=== PATIENT | female | born 1960 | race Caucasian/White ===

== ENCOUNTER 2019-11-27 05:01 | Day surgery (SDC) | payer OTHER ==
[2019-11-25 16:35] VITALS: BMI 31.8
[2019-11-27] MEDS ORDERED: SUCCINYLCHOLINE CHLORIDE 200 MG/10 ML SYRINGE ONE (08:30)
[2019-11-27] MEDS ORDERED: ROCURONIUM BROMIDE 50 MG/5 ML SYRINGE ONE (08:30)
[2019-11-27] MEDS ORDERED: fentaNYL CITRATE 250 MCG/5 ML VIAL ONE (08:30)
[2019-11-27] MEDS ORDERED: PROPOFOL 20 ML ONE (08:30)
[2019-11-27] MEDS ORDERED: MIDAZOLAM HCL 2 MG/2 ML SINGLE DOSE VIAL ONE (08:31)
[2019-11-27] MEDS ORDERED: LIDOCAINE HCL 1%, 10 MG/ML (20ML VIAL) ONE (09:12)
--- NOTE | 2019-11-27 09:13 | HP ---
History & Physical Update - History History: No Change - Physical Physical: No Change - Assessment Assessment: No Change - Plan Plan: No Change (No change in HP)
[2019-11-27] MEDS ORDERED: ceFAZolin 2 GRAM PREMIX BAG IVPB ONE (09:15)
[2019-11-27] MEDS ORDERED: NEOSTIGMINE METHYLSULFATE 0.5 MG/ML - 10 ML MDV ONE ×2 (10:15)
[2019-11-27] MEDS ORDERED: oxyCODONE HCL 5 MG TABLET PO PRN ×3 (10:27→10:33)
[2019-11-27] MEDS ORDERED: ACETAMINOPHEN 325 MG TABLET (FP) PO PRN (10:27)
[2019-11-27] MEDS ORDERED: ONDANSETRON 4 MG/2 ML VIAL IVPUSH PRN ×2 (10:27→10:33)
[2019-11-27] MEDS ORDERED: BISACODYL 5 MG TABLET.DR (FP) PO PRN (10:33)
[2019-11-27] MEDS ORDERED: DOCUSATE SODIUM 100 MG CAPSULE (FP) PO PRN (10:33)
[2019-11-27] MEDS ORDERED: SIMETHICONE 80 MG TAB.CHEW (FP) PO PRN (10:33)
[2019-11-27] MEDS ORDERED: ACETAMINOPHEN INJECTION 100 ML IVPB ONE (10:35)
[2019-11-27] MEDS ORDERED: ACETAMINOPHEN 1000 MG/100 ML VIAL (NON FORMULARY) IVPB ONE (10:35)
[2019-11-27] MEDS ORDERED: LORATADINE 10 MG TABLET PO PRN (10:38)
[2019-11-27] MEDS ORDERED: guaiFENesin 600 MG TABLET.ER (FP) PO PRN (10:38)
--- NOTE | 2019-11-27 10:59 | OP ---
Operative Note - Note: Operative Date: 11/27/19 Pre-Operative Diagnosis: riht ovarian mass Operation: Right salpingoophorectomy Findings: 9 cm ovarian mass Post-Operative Diagnosis: Same as Pre-op Surgeon: Ruthann Tong Strawhat Inspector And Packer: Perla Salazar Anesthesia: General Estimated Blood Loss (mls): 10 Operative Report Dictated: Yes
[2019-11-27] MEDS ORDERED: HYDROmorphone HCl 2 MG/ML VIAL IVPUSH PRN (12:13)
[2019-11-27] MEDS ORDERED: HYDROmorphone HCl 2 MG/ML VIAL IVPUSH ONE (12:30)
[2019-11-27] MEDS: ACETAMINOPHEN 1000 MG/100 ML VIAL (NON FORMULARY) IVPB SCH ×3 (17:36→22:06)
[2019-11-27] MEDS: LACTATED RINGERS SOLUTION 1,000 ML IV SCH (19:45)
[2019-11-28] MEDS: ACETAMINOPHEN 1000 MG/100 ML VIAL (NON FORMULARY) IVPB SCH (04:49)
[2019-11-28] MEDS: LACTATED RINGERS SOLUTION 1,000 ML IV SCH (04:51)
[2019-11-28 06:38] VITALS: PULSE 76; TEMP 98.3
--- NOTE | 2019-11-28 07:20 | PN ---
Progress Note (short form) - Note Progress Note: PUTTER IN SURGERY POD #1 s/p open abd right salpingoophorectomy No acute events per RN notes. Alert. Supine in bed. C/o mild incisional tenderness. Adequate pain control with medications ordered. She hasn't been OOB yet. Paiz remain in place. Denies n/v/f/c, CP, palpitations, SOB or LABOY. AVSS. Gen: nad ABD: dressing c/d/i. No palpable hematoma : paiz clear LE: SCDs bilat. All compartments soft. No swelling/edema. Warm. 2+ PT/DP bilat Problem List - Problems (1) Right ovarian cyst Assessment/Plan: POD #1 s/p Right salpingoophorectomy DC paiz and begin TOV OOB and ambulate Pain management PRN f/u CBC, if stable patient is cleared for DC home today. Pain scripts eScibed to patient's pharmacy Wound care outlined in patient's DC instructions. Above plan discussed with Dr. Meza who is covering for Dr. Tong and agrees. Code(s): N83.201 - UNSPECIFIED OVARIAN CYST, RIGHT SIDE
[2019-11-28 08:58] LABS: HEMATOCRIT 37.7 % (32.4-45.2); HEMOGLOBIN 12.8 GM/dL (10.7-15.3); MCH 30.8 pg (25.7-33.7); MEAN CELL VOLUME 90.6 fl (80-96); MEAN PLT VOLUME 10.6 fl (7.5-11.1); PLATELET COUNT 221 K/MM3 (134-434); RBC 4.17 M/mm3 (3.60-5.2); RDW 13.6 % (11.6-15.6); WHITE BLOOD COUNT 10.4 K/mm3 (4.0-10.0)
[2019-11-28 09:48] VITALS: BP 138/86
[2019-11-28] MEDS ORDERED: LOSARTAN POTASSIUM 50 MG TABLET (FP) PO SCH (10:00)
[2019-11-28] MEDS ORDERED: ENOXAPARIN NA (PORCINE) 40 MG/0.4 ML DISP.SYRIN SQ SCH (10:00)
--- NOTE | 2019-11-28 15:00 | SURG ---
Surgery Beck Operator Note Beck Operator: Perla Salazar PA-C Date of Service: 11/27/19 Diagnosis: riht ovarian mass Procedure: Right salpingoophorectom I was present for the entirety of the operative procedure. For further detail, please refer to operative report. Visit type - Case Type Case Type: Scheduled - Emergency Emergency Visit: No - New patient This patient is new to me today: Yes Date on this admission: 11/28/19
--- NOTE | 2019-11-28 16:21 | PATH ---
Surgical Pathology Report Patient Name: DARY FINLEY [facility]. Rec. #: [id number] /Age/Gender: 1960 (Age: 59) / F Account: [id number] Location: AMBULATORY SURG Taken: 11/27/2019 Received: 11/27/2019 Reported: 11/28/2019 Physicians: Ruthann Tong M.D. Specimen(s) Received RIGHT OVARY AND FALLOPIAN TUBE Clinical History Right ovarian cyst Final Diagnosis OVARY AND FALLOPIAN TUBE, RIGHT, SALPINGO-OOPHORECTOMY: OVARY WITH SEROUS CYSTADENOFIBROMA. UNREMARKABLE FALLOPIAN TUBE (INCLUDING FIMBRIATED END AND FULL LUMINAL PORTION). Electronically Signed Armida Stevens M.D. Gross Description Received in formalin labeled "right ovary and fallopian tube," is a 9.5 x 6.0 x 5.7 cm multiloculated cyst with a 5 cm in length fimbriated fallopian tube attached to the outer surface. Sectioning of the fallopian tube reveals an unremarkable lumen. The outer surface of the cyst is mcelroy-pink and smooth with multiple pedunculated cysts extending from the outer surface, measuring up to 4.0 cm in greatest dimension. Sectioning reveals multiloculated cystic architecture. The cysts contain clear mcelroy serous fluid. The inner lining of the cysts displays focal papillary excrescences. No normal ovarian parenchyma is identified. Advisor Consultant sections are submitted in 11 cassettes as follows: 1-fallopian tube fimbria; 2-cross sections of fallopian tube; 8-30-[id number] ovarian cyst. DL/11/27/2019 saudi/11/27/2019
[2019-11-28] MEDS ORDERED: ACETAMINOPHEN 325 MG TABLET (FP) PO PRN (17:00)
--- NOTE | 2019-12-05 06:30 | OP ---
DATE OF OPERATION: 11/27/2019 PREOPERATIVE DIAGNOSIS: Right ovarian mass. OPERATION: Right salpingo-oophorectomy. FINDINGS: A 9-cm ovarian mass. POSTOPERATIVE DIAGNOSIS: Right ovarian mass. SURGEON: Ruthann Tong MD DISABILITY ADVOCATE: AP Meza ANESTHESIA: General. ESTIMATED BLOOD LOSS: 10 mL. PROCEDURE: Patient was taken to the operating room, placed in supine position, prepped and draped in the usual sterile fashion. A timeout was performed in accordance with hospital regulation. Pfannenstiel skin incision was made with a scalpel. Cautery was then used to cut the layers of the abdominal wall to the level of the fascia. Fascia was cut in the midline and cautery was then used to open the fascia in a smiling fashion. Kochers were used to bluntly and sharply dissect the rectus muscle off the fascia. Muscle split in the midline. Peritoneal cavity was then entered and carried up and downward. Exploration of the abdomen revealed a right ovarian mass. LigaSure was then used to clamp and cut the infundibulopelvic ligament taking tube and ovary. Coagulation and cutting were then done and about 9-cm ovarian mass was then handed off to Pathology. Exploration of the abdomen revealed no other pathology. Uterus had been removed and left ovary had been removed. Peritoneum was then closed using 0 Vicryl suture in 2 layers and then fascia was then closed using 0 Vicryl suture in 2 parts. Skin was then closed using 3-0 Vicryl in subcuticular fashion. Wound was washed and dressed. Patient tolerated procedure well, was taken to recovery room in stable condition. RUTHANN TONG M.D. NOHEMI/[id number]
== END 2019-11-28 12:35 | disposition home or self-care (01) ==
LOC: JASU-SURG 05:01 → JASUSAT 05:01 → J3W 17:16 → JASUSAT 11-28 12:35
PROVIDERS: ATTEND Obstetrics & Gynecology
PROC: 0UB54ZZ Excision of Right Fallopian Tube, Percutaneous Endoscopic Approach (ICD-10-PCS; 2019-11-27)
PROC: 0UT04ZZ Resection of Right Ovary, Percutaneous Endoscopic Approach (ICD-10-PCS; principal; 2019-11-27 09:00)
DX: D27.0 Benign neoplasm of right ovary (principal)
CPT/HCPCS: 36415; 85027; 86922; 88307-TC; 94010; 94760; J0131